=== PATIENT | female | born 1990 | race American Indian/Alaskan Native ===

== ENCOUNTER 2021-02-11 06:33 | Emergency (ER) | payer BC, OTHER ==
--- NOTE | 2021-02-11 08:10 | Emergency Department Report ---
ED Rash HPI - HPI Chief Complaint: Skin Rash Stated Complaint: RASH Time Seen by Provider: 02/11/21 08:00 Location: Chest, Back Suspected Cause: Other Rash Symptoms: Yes Itching, No Facial Swelling, No Tongue/Oral Swelling, No Breathing Difficulties, No Peeling, No Blistering, No Malaise, No Myalgias Severity: mild ED Review of Systems ROS: Stated complaint: RASH Other details as noted in HPI Comment: All other systems reviewed and negative ED Past Medical Hx - Past Medical History Previous Medical History?: No - Surgical History Past Surgical History?: No - Social History Smoking Status: Never Smoker Substance Use Type: Alcohol, Marijuana - Medications Home Medications: Home Medications Medication Instructions Recorded Confirmed Last Taken Type Ibuprofen [Motrin 800 MG tab] 800 mg PO Q8HR PRN #30 tablet 08/11/15 Unknown Rx Betamethasone/Propylene Glyc 500 mg TP BID #45 oint...g. 02/11/21 Unknown Rx [Diprolene 0.05% Ointment] predniSONE [Deltasone] 20 mg PO QDAY #7 tab 02/11/21 Unknown Rx Rash Exam - Exam General: Vital signs noted. No distress. Alert and acting appropriately. HEENT: No Periorbital Edema, No Conjuctival Injection, No Chemosis, No Perioral Edema, No Tongue Edema, No Uvular Edema, No Compromised Airway, No Drooling Lungs: Yes Good Air Exchange (Normal Breath Sounds), No Wheezes, No Ronchi, No Stridor, No Cough, No Labored Respirations, No Retractions, No Use of Accessory Muscles, No Other Abnormal Lung Sounds Heart: Yes Regular, No Murmur Skin: Yes Erythema, Yes Other (Pinkish oval scaly rash with raised borders large herald patch noted to the back with several small variable sized lesions to the torso.), No Excoriations, No Weeping, No Tenderness Other: Positive: Abdomen Normal, Neurologic Normal, Musculoskeletal Normal ED Course Vital Signs 02/11/21 06:36 Temperature 98.2 F Pulse Rate 86 Respiratory 18 Rate O2 Sat by Pulse 98 Oximetry ED Medical Decision Making - Medical Decision Making 22-year-old female [facility] emerge department with a rash suggestive of pityriasis rosea herald patch located on the back I discussed with patient and gave her some patient education on this issue we will try to treat some of the symptoms with corticosteroids and and cream Critical care attestation.: If time is entered above; I have spent that time in minutes in the direct care of this critically ill patient, excluding procedure time. ED Disposition Clinical Impression: Pityriasis rosea Disposition: TO HOME OR SELFCARE Is pt being admited?: No Does the pt Need Aspirin: No Condition: Stable Instructions: Pityriasis Rosea Prescriptions: predniSONE [Deltasone] 20 mg PO QDAY #7 tab Betamethasone/Propylene Glyc [Diprolene 0.05% Ointment] 500 mg TP BID #45 oint...g. Referrals: [facility] [Provider Group] - 3-5 Days
== END 2021-02-11 09:07 | disposition home or self-care (01) ==
LOC: ED 06:33
DX: L42 Pityriasis rosea (principal); Z79.1 Long term (current) use of non-steroidal anti-inflammatories (NSAID); Z79.899 Other long term (current) drug therapy
CPT/HCPCS: 99282